=== PATIENT | female | born 1995 | race Hispanic/Latino ===

== ENCOUNTER 2024-06-18 20:42 | Emergency (ER) | payer SELFPAY ==
[~2024-06-18] VITALS: Ht 162.6 cm; Wt 117.9 kg
[~2024-06-18 20:42] MED LIST: PRENATAL FORMU1 EAC1 PO
[2024-06-18 21:09] VITALS: PULSE 104; RESP 18; TEMP 99.5
[2024-06-18 22:34] LABS: ALBUMIN 3.8 g/dL (3.5-5.0); ANION GAP 15.1 mmol/L (8-16); BILIRUBIN,TOTAL 0.2 mg/dL (0.2-1.2); CALCIUM 9.8 mg/dL (8.4-10.2); CREATININE, SERUM 0.89 mg/dL (0.57-1.11); POTASSIUM 4.1 mmol/L (3.5-5.1); TOTAL PROTEIN 7.6 g/dL (6.5-8.1)
[2024-06-19 01:16] VITALS: BP 132/72; PULSE 99; RESP 18; TEMP 98.8; O2SAT 99
== END 2024-06-19 01:16 | disposition home or self-care (01) ==
LOC: FSED 21:49
DX: O26.891 Other specified pregnancy related conditions, first trimester (principal); R10.30 Lower abdominal pain, unspecified; R19.7 Diarrhea, unspecified
CPT/HCPCS: 36415; 76801; 80053; 81003; 81025; 84702; 87086; 99283